=== PATIENT | female | born 1945 | race Asian ===

== ENCOUNTER 2017-09-21 19:35 | Inpatient (IN) | payer OTHER ==
[~2017-09-21] VITALS: Ht 157.5 cm; Wt 55.4 kg
[~2017-09-21 19:35] MED LIST: ADV250 IH; ALBU8HFA4 IH; AMLO-512 PO; ASPI-1182 PO; CIME400T PO; CLON.3 PO; FISH OIL; FLUT16H NASAL; GLIM4 PO; HYDR-2924 PO; INSNOV SQ; LOSA50TA37 PO; LOVA20 PO; VITAMIN
[2017-09-21 20:02] LABS: GLUCOSE,POINT OF CARE 213 MG/DL (70-110)
[2017-09-21 20:31] LABS: BASOPHILS % (AUTO) 0.4 % (0.0-2.0); HEMATOCRIT 44.2 % (36-46); LYMPHOCYTES # (AUTO) 2.5 K/uL (1.0-4.8); LYMPHOCYTES % (AUTO) 23.8 % (22.0-44.0); MEAN CORPUSCULAR HGB CONC 33.9 G/dL (31.0-37.0); MEAN CORPUSCULAR VOLUME 80 fL (80-100); MONOCYTES # (AUTO) 0.8 K/uL (0.1-1.0); MONOCYTES % (AUTO) 7.7 % (2.0-9.0); NEUTROPHILS # (AUTO) 6.9 K/uL (1.8-7.7); NEUTROPHILS % (AUTO) 67.1 % (40.0-70.0); PLATELET COUNT (AUTO) 406 K/uL (150-450); RED BLOOD CELL COUNT(AUTO) 5.55 MIL/uL (4.00-5.20); RED CELL DISTRIBUTION WIDTH 13.5 % (11.5-14.5); WHITE BLOOD COUNT (AUTO) 10.3 K/uL (4.5-11.0)
[2017-09-21 20:37] LABS: CALCIUM, TOTAL 10.4 mg/dL (8.8-10.5); CREATININE 0.92 mg/dL (0.60-1.30); POTASSIUM 3.3 mmol/L (3.5-5.1)
[2017-09-21 20:43] LABS: ALBUMIN 4.5 g/dL (3.4-5.0); BILIRUBIN,TOTAL 0.2 mg/dL (0.1-1.0); TOTAL PROTEIN, SERUM 9.4 g/dL (6.4-8.2)
[2017-09-21] MEDS ORDERED: ALBUTEROL SULFATE 5 MG/ML 20 ML NEB SOLN [BULK] NEB ONE (20:45)
[2017-09-21] MEDS ORDERED: MethylPREDNISolone SOD SUCC 125 MG/2 ML VIAL IVP ONE (20:45)
[2017-09-21] MEDS ORDERED: IPRATROPIUM BROMIDE 0.5 MG/2.5 ML NEB SOLUTION NEB ONE (20:45)
[2017-09-21] MEDS ORDERED: AmLODIPine BESYLATE 10 MG TABLET PO ONE (21:00)
[2017-09-21] MEDS ORDERED: HydrALAZINE HCL 20 MG/ML VIAL IVP ONE (21:00)
[2017-09-21] MEDS ORDERED: 0.9% SODIUM CHLORIDE 10 ML SYRINGE IVP PRN (21:15)
[2017-09-21] MEDS ORDERED: ASPIRIN 325 MG TABLET PO ONE (21:15)
[2017-09-21] MEDS ORDERED: ACETAMINOPHEN 325 MG TABLET PO PRN (21:15)
[2017-09-21] MEDS ORDERED: ONDANSETRON HCL 4 MG/2 ML VIAL IVP PRN (21:15)
[2017-09-21] MEDS ORDERED: ZOLPIDEM TARTRATE 5 MG TABLET PO PRN (21:45)
[2017-09-21] MEDS ORDERED: MAGNESIUM HYDROXIDE SUSPENSION 30 ML UDCUP PO PRN (21:45)
[2017-09-21] MEDS ORDERED: DEXTROSE 50%-WATER 25 GM/50 ML SYRINGE IVP PRN (21:45)
[2017-09-21] MEDS ORDERED: ALBUTEROL SULFATE 2.5 MG/0.5 ML NEB SOLUTION NEB PRN (21:45)
[2017-09-21] MEDS ORDERED: OxyCODONE HCL/ACETAMINOPHEN 5-325 MG TABLET PO PRN (21:45)
[2017-09-21] MEDS ORDERED: BISACODYL 10 MG RECTAL RECTAL SUPPOSITORY PR PRN (21:45)
[2017-09-21] MEDS ORDERED: MORPHINE SULFATE 2 MG/ML SYRINGE IVP PRN (21:45)
[2017-09-21] MEDS ORDERED: IPRATROPIUM BROMIDE 0.5 MG/2.5 ML NEB SOLUTION NEB PRN (21:45)
[2017-09-21] MEDS ORDERED: CloNIDine HCL 0.1 MG TABLET PO PRN (21:45)
[2017-09-21 21:51] VITALS: BP 149/70
[2017-09-21] MEDS: ACETAMINOPHEN 325 MG TABLET PO PRN (21:59)
[2017-09-21] MEDS: INSULIN ASPART 100 UNITS/ML SQ PRN (22:24)
[2017-09-21 23:25] VITALS: BP 134/62
[2017-09-22 04:32] VITALS: BP 147/74
[2017-09-22 04:51] LABS: APPEARANCE,URINE CLEAR (CLEAR); GLUCOSE, URINE (UA) 500 mg/dL (NEGATIVE); KETONES,URINE NEGATIVE (NEGATIVE); LEUKOCYTE ESTERASE ,URINE NEGATIVE (NEGATIVE); OCCULT BLOOD,URINE NEGATIVE (NEGATIVE); PROTEIN,URINE SEE CONFIRM (NEGATIVE)
[2017-09-22 04:57] LABS: ADD UA MICROSCOPIC YES
[2017-09-22 05:12] LABS: RBC,URINE None Seen /HPF (0-2); SULFOSALICYLIC ACID,URINE 1+ (Negative); WBC,URINE None Seen /HPF (0-5)
[2017-09-22] MEDS ORDERED: POTASSIUM CHL 10 MEQ/WATER 50 ML IV PRN (05:30)
[2017-09-22] MEDS ORDERED: BENZOCAINE/MENTHOL LOZENGE [8 LOZENGES/PACKET] PO PRN (05:30)
[2017-09-22] MEDS ORDERED: INFLUENZA VIRUS VACCINE QVS 2017-18 (3YR+)/PF 60 MCG/0.5 ML SYRINGE IM ONE (05:30)
[2017-09-22] MEDS ORDERED: POTASSIUM CHLORIDE 20 MEQ ER TABLET PO PRN (05:30)
[2017-09-22 06:12] LABS: GLUCOSE COMMENT 1 Received Meds; GLUCOSE,POINT OF CARE 282 MG/DL (70-110)
[2017-09-22] MEDS: GuaiFENesin/D-METHORPHAN [SUGAR-FREE] 200-20MG/10 ML SYRUP UDCUP PO PRN ×2 (06:16→21:35)
[2017-09-22] MEDS: INSULIN ASPART 100 UNITS/ML SQ PRN ×2 (06:21→12:03)
[2017-09-22 06:50] LABS: BASOPHILS # (AUTO) 0.02 K/uL (0.00-0.20); BASOPHILS % (AUTO) 0.2 % (0.0-2.0); EOSINOPHILS % (AUTO) 0.04 % (1.0-6.0); HEMATOCRIT 41.5 % (36-46); HEMOGLOBIN 13.8 g/dL (12.0-16.0); LYMPHOCYTES # (AUTO) 1.6 K/uL (1.0-4.8); LYMPHOCYTES % (AUTO) 16.6 % (22.0-44.0); MEAN CORPUSCULAR HEMOGLOBIN 26.3 pg (26.0-34.0); MEAN CORPUSCULAR HGB CONC 33.2 G/dL (31.0-37.0); MEAN CORPUSCULAR VOLUME 79 fL (80-100); MONOCYTES % (AUTO) 0.3 % (2.0-9.0); NEUTROPHILS # (AUTO) 7.7 K/uL (1.8-7.7); NEUTROPHILS % (AUTO) 82.9 % (40.0-70.0); PLATELET COUNT (AUTO) 334 K/uL (150-450); RED BLOOD CELL COUNT(AUTO) 5.24 MIL/uL (4.00-5.20); RED CELL DISTRIBUTION WIDTH 13.2 % (11.5-14.5); WHITE BLOOD COUNT (AUTO) 9.3 K/uL (4.5-11.0)
[2017-09-22 06:56] LABS: PROTHROMBIN TIME 10.7 SEC (9.4-11.6)
[2017-09-22 07:39] VITALS: BP 166/95
[2017-09-22 08:12] LABS: HEMOGLOBIN A1C 7.6 % (4.5-6.2)
[2017-09-22 08:16] LABS: CALCIUM, TOTAL 10.1 mg/dL (8.8-10.5); CREATININE 1.07 mg/dL (0.60-1.30); PHOSPHORUS 3.4 mg/dL (2.5-4.9); POTASSIUM 4.1 mmol/L (3.5-5.1)
[2017-09-22 08:17] LABS: BILIRUBIN,TOTAL 0.3 mg/dL (0.1-1.0); MAGNESIUM 2.1 mg/dL (1.80-2.40); TOTAL PROTEIN, SERUM 8.1 g/dL (6.4-8.2)
[2017-09-22] MEDS: ASPIRIN 81 MG EC TABLET PO SCH (08:34)
[2017-09-22] MEDS: AmLODIPine BESYLATE 10 MG TABLET PO SCH (08:34)
[2017-09-22] MEDS: HEPARIN SODIUM,PORCINE 5,000 UNITS/ML VIAL SQ SCH ×2 (08:34→21:31)
[2017-09-22] MEDS: FLUTICASONE PROPIONATE 50 MCG/SPRAY 16 GM NASAL SPRAY NASAL SCH (08:34)
[2017-09-22] MEDS: MULTIVITAMINS WITH MINERALS, THERAPEUTIC TABLET PO SCH (08:35)
[2017-09-22] MEDS: GLIMEPIRIDE 4 MG TABLET PO SCH ×2 (08:35→21:43)
[2017-09-22] MEDS: CIMETIDINE 400 MG TABLET PO SCH ×2 (08:35→21:30)
[2017-09-22] MEDS: FLUTICASONE/VILANTEROL 200-25 MCG/INH INHALER [14] IH SCH (08:35)
[2017-09-22] MEDS: OMEGA-3/DHA/EPA/FISH OIL 1,000 MG CAPSULE PO SCH (08:35)
[2017-09-22] MEDS: HydrALAZINE HCL 50 MG TABLET PO SCH ×2 (08:35→21:30)
[2017-09-22] MEDS ORDERED: ENOXAPARIN SODIUM 40 MG/0.4 ML PF SYRINGE SQ SCH (09:00)
[2017-09-22] MEDS: LOSARTAN POTASSIUM 50 MG TABLET PO SCH (09:47)
[2017-09-22] MEDS: LABETALOL HCL 200 MG TABLET PO SCH ×3 (09:47→21:30)
[2017-09-22 11:25] VITALS: BP 165/96
[2017-09-22 15:47] LABS: GLUCOSE,POINT OF CARE 208 MG/DL (70-110)
[2017-09-22 16:08] VITALS: BP 159/81
[2017-09-22 20:00] VITALS: BP 161/82
[2017-09-22 20:07] LABS: GLUCOSE,POINT OF CARE 113 MG/DL (70-110)
[2017-09-22] MEDS: LOVASTATIN 20 MG TABLET PO SCH (21:30)
[2017-09-22] MEDS: ONDANSETRON HCL 4 MG/2 ML VIAL IVP PRN (22:41)
[2017-09-23] VITALS (7 sets, daily range): BP systolic 134–159; BP diastolic 67–79
[2017-09-23] MEDS: ACETAMINOPHEN 325 MG TABLET PO PRN (06:15)
[2017-09-23] MEDS: INSULIN ASPART 100 UNITS/ML SQ PRN ×3 (06:16→18:15)
[2017-09-23 07:36] LABS: BASOPHILS # (AUTO) 0.03 K/uL (0.00-0.20); BASOPHILS % (AUTO) 0.2 % (0.0-2.0); EOSINOPHILS # (AUTO) 0.05 K/uL (0.00-0.70); EOSINOPHILS % (AUTO) 0.46 % (1.0-6.0); HEMATOCRIT 42.7 % (36-46); HEMOGLOBIN 14.1 g/dL (12.0-16.0); LYMPHOCYTES # (AUTO) 2.9 K/uL (1.0-4.8); LYMPHOCYTES % (AUTO) 25.4 % (22.0-44.0); MEAN CORPUSCULAR HEMOGLOBIN 26.4 pg (26.0-34.0); MEAN CORPUSCULAR VOLUME 80 fL (80-100); MONOCYTES # (AUTO) 0.9 K/uL (0.1-1.0); MONOCYTES % (AUTO) 7.5 % (2.0-9.0); NEUTROPHILS # (AUTO) 7.7 K/uL (1.8-7.7); NEUTROPHILS % (AUTO) 66.5 % (40.0-70.0); PLATELET COUNT (AUTO) 383 K/uL (150-450); RED BLOOD CELL COUNT(AUTO) 5.33 MIL/uL (4.00-5.20); WHITE BLOOD COUNT (AUTO) 11.5 K/uL (4.5-11.0)
[2017-09-23 08:24] LABS: ALBUMIN 4.1 g/dL (3.4-5.0); BILIRUBIN,TOTAL 0.4 mg/dL (0.1-1.0); CALCIUM, TOTAL 10.1 mg/dL (8.8-10.5); CREATININE 1.07 mg/dL (0.60-1.30); MAGNESIUM 2.3 mg/dL (1.80-2.40); POTASSIUM 4.6 mmol/L (3.5-5.1); TOTAL PROTEIN, SERUM 8.1 g/dL (6.4-8.2)
[2017-09-23] MEDS: ONDANSETRON HCL 4 MG/2 ML VIAL IVP PRN (08:27)
[2017-09-23] MEDS: GLIMEPIRIDE 4 MG TABLET PO SCH ×2 (09:00→18:13)
[2017-09-23] MEDS: AmLODIPine BESYLATE 10 MG TABLET PO SCH (09:01)
[2017-09-23] MEDS: LOSARTAN POTASSIUM 50 MG TABLET PO SCH (09:01)
[2017-09-23] MEDS: HydrALAZINE HCL 50 MG TABLET PO SCH ×2 (09:02→20:27)
[2017-09-23] MEDS: FLUTICASONE PROPIONATE 50 MCG/SPRAY 16 GM NASAL SPRAY NASAL SCH (09:02)
[2017-09-23] MEDS: FLUTICASONE/VILANTEROL 200-25 MCG/INH INHALER [14] IH SCH (09:02)
[2017-09-23] MEDS: LABETALOL HCL 200 MG TABLET PO SCH ×3 (09:02→20:27)
[2017-09-23] MEDS ORDERED: SESTAMIBI TC99M/UD ISOTOPE 1 EA INJ INJ ONE (09:05)
[2017-09-23] MEDS: OMEGA-3/DHA/EPA/FISH OIL 1,000 MG CAPSULE PO SCH (09:08)
[2017-09-23] MEDS: MULTIVITAMINS WITH MINERALS, THERAPEUTIC TABLET PO SCH (09:08)
[2017-09-23] MEDS: CIMETIDINE 400 MG TABLET PO SCH ×2 (09:08→20:27)
[2017-09-23] MEDS: HEPARIN SODIUM,PORCINE 5,000 UNITS/ML VIAL SQ SCH ×2 (09:09→20:28)
[2017-09-23] MEDS: ASPIRIN 81 MG EC TABLET PO SCH (09:09)
[2017-09-23] MEDS: LOVASTATIN 20 MG TABLET PO SCH (20:27)
[2017-09-24] VITALS (9 sets, daily range): BP systolic 117–158; BP diastolic 53–85
[2017-09-24 07:01] LABS: ALBUMIN/GLOBULIN RAITO (PEP) 1.4 (0.7-1.7); ALPHA-1 GLOBULINS(PEP) 0.2 g/dL (0.0-0.4); ALPHA-2 GLOBULINS (PEP) 0.8 g/dL (0.4-1.0); BETA (PEP) 1.1 g/dL (0.7-1.3); GAMMA GLOBULINS (PEP) 1.3 g/dL (0.4-1.8); GLOBULIN TOTAL (PEP) 3.4 g/dL (2.2-3.9); M-SPIKE (PEP) Not Observed g/dL (Not Observed)
[2017-09-24 07:19] LABS: BASOPHILS # (AUTO) 0.02 K/uL (0.00-0.20); BASOPHILS % (AUTO) 0.2 % (0.0-2.0); EOSINOPHILS # (AUTO) 0.05 K/uL (0.00-0.70); EOSINOPHILS % (AUTO) 0.61 % (1.0-6.0); HEMATOCRIT 41.2 % (36-46); HEMOGLOBIN 13.5 g/dL (12.0-16.0); LYMPHOCYTES # (AUTO) 2.6 K/uL (1.0-4.8); MEAN CORPUSCULAR HEMOGLOBIN 26.6 pg (26.0-34.0); MEAN CORPUSCULAR HGB CONC 32.8 G/dL (31.0-37.0); MEAN CORPUSCULAR VOLUME 81 fL (80-100); MONOCYTES # (AUTO) 0.7 K/uL (0.1-1.0); MONOCYTES % (AUTO) 8.4 % (2.0-9.0); NEUTROPHILS # (AUTO) 4.6 K/uL (1.8-7.7); NEUTROPHILS % (AUTO) 57.7 % (40.0-70.0); PLATELET COUNT (AUTO) 341 K/uL (150-450); RED BLOOD CELL COUNT(AUTO) 5.08 MIL/uL (4.00-5.20); RED CELL DISTRIBUTION WIDTH 13.3 % (11.5-14.5)
[2017-09-24 07:49] LABS: BILIRUBIN,TOTAL 0.3 mg/dL (0.1-1.0); CALCIUM, TOTAL 9.7 mg/dL (8.8-10.5); CREATININE 0.93 mg/dL (0.60-1.30); MAGNESIUM 2.2 mg/dL (1.80-2.40); POTASSIUM 3.7 mmol/L (3.5-5.1); TOTAL PROTEIN, SERUM 7.1 g/dL (6.4-8.2)
[2017-09-24] MEDS ORDERED: REGADENOSON 0.4 MG/5 ML PF SYRINGE IVP ONE (08:06)
[2017-09-24] MEDS ORDERED: AMINOPHYLLINE 25 MG/ML 10 ML VIAL IVP ONE (08:10)
[2017-09-24] MEDS ORDERED: SESTAMIBI TC99M/UD ISOTOPE 1 EA INJ INJ ONE (08:15)
[2017-09-24] MEDS: LOSARTAN POTASSIUM 50 MG TABLET PO SCH (09:36)
[2017-09-24] MEDS: HEPARIN SODIUM,PORCINE 5,000 UNITS/ML VIAL SQ SCH ×2 (09:36→20:32)
[2017-09-24] MEDS: MULTIVITAMINS WITH MINERALS, THERAPEUTIC TABLET PO SCH (09:37)
[2017-09-24] MEDS: GLIMEPIRIDE 4 MG TABLET PO SCH (09:37)
[2017-09-24] MEDS: FLUTICASONE PROPIONATE 50 MCG/SPRAY 16 GM NASAL SPRAY NASAL SCH (09:37)
[2017-09-24] MEDS: CIMETIDINE 400 MG TABLET PO SCH ×2 (09:37→20:31)
[2017-09-24] MEDS: AmLODIPine BESYLATE 10 MG TABLET PO SCH (09:37)
[2017-09-24] MEDS: HydrALAZINE HCL 50 MG TABLET PO SCH ×2 (09:37→20:31)
[2017-09-24] MEDS: LABETALOL HCL 200 MG TABLET PO SCH ×3 (09:37→20:31)
[2017-09-24] MEDS: ASPIRIN 81 MG EC TABLET PO SCH (09:37)
[2017-09-24] MEDS: FLUTICASONE/VILANTEROL 200-25 MCG/INH INHALER [14] IH SCH (09:38)
[2017-09-24 11:43] LABS: GLUCOSE,POINT OF CARE 205 MG/DL (70-110)
[2017-09-24] MEDS: OMEGA-3/DHA/EPA/FISH OIL 1,000 MG CAPSULE PO SCH (12:32)
[2017-09-24] MEDS: INSULIN ASPART 100 UNITS/ML SQ PRN ×3 (14:45→21:54)
[2017-09-24] MEDS ORDERED: PNEUMOCOCCAL VACCINE POLYVALENT 0.5 ML VIAL [PPSV23] IM ONE (15:15)
[2017-09-24] MEDS: LOVASTATIN 20 MG TABLET PO SCH (20:31)
[2017-09-24 23:22] LABS: GLUCOSE COMMENT 1 Received Meds; GLUCOSE,POINT OF CARE 161 MG/DL (70-110)
[2017-09-24 23:22] LABS: GLUCOSE,POINT OF CARE 130 MG/DL (70-110)
[2017-09-24 23:32] LABS: GLUCOSE COMMENT 1 Received Meds; GLUCOSE,POINT OF CARE 209 MG/DL (70-110)
[2017-09-25 05:07] VITALS: BP 156/77
[2017-09-25 05:33] LABS: GLUCOSE COMMENT 1 Received Meds; GLUCOSE,POINT OF CARE 143 MG/DL (70-110)
[2017-09-25 05:37] LABS: GLUCOSE,POINT OF CARE 161 MG/DL (70-110)
[2017-09-25 05:37] LABS: GLUCOSE,POINT OF CARE 207 MG/DL (70-110)
[2017-09-25 05:37] LABS: GLUCOSE,POINT OF CARE 137 MG/DL (70-110)
[2017-09-25 05:37] LABS: GLUCOSE,POINT OF CARE 79 MG/DL (70-110)
[2017-09-25 06:44] LABS: BASOPHILS % (AUTO) 0.3 % (0.0-2.0); EOSINOPHILS % (AUTO) 1.2 % (1.0-6.0); HEMATOCRIT 39.4 % (36-46); HEMOGLOBIN 13.2 g/dL (12.0-16.0); LYMPHOCYTES # (AUTO) 2.6 K/uL (1.0-4.8); LYMPHOCYTES % (AUTO) 35.4 % (22.0-44.0); MEAN CORPUSCULAR HGB CONC 33.4 G/dL (31.0-37.0); MEAN CORPUSCULAR VOLUME 81 fL (80-100); MONOCYTES # (AUTO) 0.8 K/uL (0.1-1.0); MONOCYTES % (AUTO) 10.9 % (2.0-9.0); NEUTROPHILS # (AUTO) 3.8 K/uL (1.8-7.7); NEUTROPHILS % (AUTO) 52.2 % (40.0-70.0); PLATELET COUNT (AUTO) 328 K/uL (150-450); RED BLOOD CELL COUNT(AUTO) 4.87 MIL/uL (4.00-5.20); RED CELL DISTRIBUTION WIDTH 13.5 % (11.5-14.5); WHITE BLOOD COUNT (AUTO) 7.3 K/uL (4.5-11.0)
[2017-09-25 07:00] VITALS: BP 146/76
[2017-09-25 07:08] LABS: ALBUMIN 3.6 g/dL (3.4-5.0); BILIRUBIN,TOTAL 0.3 mg/dL (0.1-1.0); CALCIUM, TOTAL 9.4 mg/dL (8.8-10.5); CREATININE 1.06 mg/dL (0.60-1.30); MAGNESIUM 2.4 mg/dL (1.80-2.40); POTASSIUM 3.6 mmol/L (3.5-5.1); TOTAL PROTEIN, SERUM 7.3 g/dL (6.4-8.2)
[2017-09-25] MEDS: LABETALOL HCL 200 MG TABLET PO SCH (08:17)
[2017-09-25] MEDS: CIMETIDINE 400 MG TABLET PO SCH (08:17)
[2017-09-25] MEDS: MULTIVITAMINS WITH MINERALS, THERAPEUTIC TABLET PO SCH (08:17)
[2017-09-25] MEDS: OMEGA-3/DHA/EPA/FISH OIL 1,000 MG CAPSULE PO SCH (08:17)
[2017-09-25] MEDS: HEPARIN SODIUM,PORCINE 5,000 UNITS/ML VIAL SQ SCH (08:17)
[2017-09-25] MEDS: LOSARTAN POTASSIUM 50 MG TABLET PO SCH (08:17)
[2017-09-25] MEDS: AmLODIPine BESYLATE 10 MG TABLET PO SCH (08:17)
[2017-09-25] MEDS: HydrALAZINE HCL 50 MG TABLET PO SCH (08:18)
[2017-09-25] MEDS: FLUTICASONE PROPIONATE 50 MCG/SPRAY 16 GM NASAL SPRAY NASAL SCH (08:18)
[2017-09-25] MEDS: ASPIRIN 81 MG EC TABLET PO SCH (08:18)
[2017-09-25] MEDS: FLUTICASONE/VILANTEROL 200-25 MCG/INH INHALER [14] IH SCH (08:18)
[2017-09-25] MEDS ORDERED: LABE200T PO (09:06)
[2017-09-25] MEDS ORDERED: ATORVASTATIN CALCIUM 20 MG TABLET PO SCH (10:00)
[2017-09-25 11:14] VITALS: BP 128/64
[2017-09-25] MEDS: INSULIN ASPART 100 UNITS/ML SQ PRN (12:03)
[2017-09-25 12:12] LABS: GLUCOSE,POINT OF CARE 185 MG/DL (70-110)
[2017-09-25 18:37] LABS: GLUCOSE,POINT OF CARE 133 MG/DL (70-110)
== END 2017-09-25 13:15 | disposition home or self-care (01) | DRG 191 ==
LOC: EMS 19:37 → 5S 21:20
PROVIDERS: ADMIT Internal Medicine; ATTEND Internal Medicine
PROC: 3E0234Z Introduction of Serum, Toxoid and Vaccine into Muscle, Percutaneous Approach (ICD-10-PCS; 2017-09-22)
PROC: 3E0234Z Introduction of Serum, Toxoid and Vaccine into Muscle, Percutaneous Approach (ICD-10-PCS; principal; 2017-09-24)
DX: J44.1 Chronic obstructive pulmonary disease with (acute) exacerbation (principal); I16.1 Hypertensive emergency; E11.65 Type 2 diabetes mellitus with hyperglycemia; I34.0 Nonrheumatic mitral (valve) insufficiency; E87.1 Hypo-osmolality and hyponatremia; I20.0 Unstable angina; E78.5 Hyperlipidemia, unspecified; E87.6 Hypokalemia; M19.90 Unspecified osteoarthritis, unspecified site; Z72.0 Tobacco use; I10 Essential (primary) hypertension; K21.9 Gastro-esophageal reflux disease without esophagitis; Z79.4 Long term (current) use of insulin; Z91.14 Patient's other noncompliance with medication regimen; Z23 Encounter for immunization
CPT/HCPCS: 76775; 78452; 82962; 83036; 83735; 84100; 84132; 84155; 84165; 90471; 93005; 93017; 93306; 93976; 94640; 96374; 96375; 99291; A9500; J0360; J1644; J2405; J2930

== ENCOUNTER 2017-11-06 00:43 | Emergency (ER) | payer OTHER ==
[~2017-11-06] VITALS: Ht 157.5 cm; Wt 63.6 kg
[~2017-11-06 00:43] MED LIST changes: -CLON.3 PO; -FLUT16H NASAL; -INSNOV SQ; +LABE200T PO
[2017-11-06] MEDS ORDERED: OMEG-50 PO (00:56)
[2017-11-06] MEDS ORDERED: GABA-529 PO (00:56)
[2017-11-06] MEDS ORDERED: HYDR-2924 PO (00:56)
[2017-11-06] MEDS ORDERED: MULT-1103 PO (00:56)
[2017-11-06] MEDS ORDERED: LOVA20 PO (00:56)
[2017-11-06] MEDS ORDERED: CYAN1TAB44 PO (00:56)
[2017-11-06] MEDS ORDERED: DiphenhydrAMINE HCL 50 MG/ML VIAL IM ONE (01:45)
[2017-11-06] MEDS ORDERED: KETOROLAC TROMETHAMINE 30 MG/ML VIAL IM ONE (01:45)
[2017-11-06] MEDS ORDERED: METOCLOPRAMIDE HCL 5 MG/ML 2 ML VIAL IM ONE (01:45)
[2017-11-06] MEDS ORDERED: FentaNYL CITRATE-PF 100 MCG/2 ML VIAL IM ONE (03:15)
[2017-11-06 03:38] VITALS: BP 125/70
== END 2017-11-06 04:42 | disposition home or self-care (01) ==
LOC: EMS 00:44
DX: R51 Headache (principal); J45.909 Unspecified asthma, uncomplicated; E11.9 Type 2 diabetes mellitus without complications; I10 Essential (primary) hypertension
CPT/HCPCS: 70450; 96372; 99284; J1200; J1885; J2765; J3010

== ENCOUNTER 2018-12-19 17:27 | Inpatient (IN) | payer MEDICAID, MEDICARE, OTHER ==
[~2018-12-19] VITALS: Ht 152.4 cm; Wt 54.5 kg
[~2018-12-19 17:27] MED LIST changes: +CYAN1TAB44 PO; -FISH OIL; +GABA-529 PO; -LABE200T PO; +LABE200T5 PO; -LOSA50TA37 PO; +LOSA50TA64 PO; +MULT-1103 PO; +OMEG-50 PO; -VITAMIN
[2018-12-19 17:38] LABS: GLUCOSE,POINT OF CARE 117 MG/DL (70-110)
[2018-12-19] MEDS ORDERED: METF-960 PO (17:39)
[2018-12-19 19:09] LABS: APPEARANCE,URINE CLEAR (CLEAR); BILIRUBIN,URINE NEGATIVE (NEGATIVE); GLUCOSE, URINE (UA) NEGATIVE (NEGATIVE); KETONES,URINE NEGATIVE (NEGATIVE); LEUKOCYTE ESTERASE ,URINE NEGATIVE (NEGATIVE); NITRATE,URINE NEGATIVE (NEGATIVE); OCCULT BLOOD,URINE NEGATIVE (NEGATIVE); PH,URINE 6.5 (5.0-8.0); PROTEIN,URINE NEGATIVE (NEGATIVE); UROBILINOGEN,URINE 0.2 mg/dL (<=1.0)
[2018-12-19 19:09] LABS: BASOPHILS % (AUTO) 0.5 % (0.0-2.0); EOSINOPHILS % (AUTO) 2.5 % (1.0-6.0); HEMATOCRIT 39.4 % (36-46); HEMOGLOBIN 13.2 g/dL (12.0-16.0); LYMPHOCYTES # (AUTO) 2.5 K/uL (1.0-4.8); LYMPHOCYTES % (AUTO) 33.6 % (22.0-44.0); MEAN CORPUSCULAR HEMOGLOBIN 26.8 pg (26.0-34.0); MEAN CORPUSCULAR HGB CONC 33.4 G/dL (31.0-37.0); MEAN CORPUSCULAR VOLUME 80 fL (80-100); MONOCYTES # (AUTO) 0.6 K/uL (0.1-1.0); MONOCYTES % (AUTO) 8.3 % (2.0-9.0); NEUTROPHILS # (AUTO) 4.2 K/uL (1.8-7.7); NEUTROPHILS % (AUTO) 55.1 % (40.0-70.0); PLATELET COUNT (AUTO) 334 K/uL (150-450); RED BLOOD CELL COUNT(AUTO) 4.91 MIL/uL (4.00-5.20); RED CELL DISTRIBUTION WIDTH 13.9 % (11.5-14.5)
[2018-12-19 19:21] LABS: ANION GAP 12 mmol/L (8-16); CALCIUM, TOTAL 10.4 mg/dL (8.8-10.5); CARBON DIOXIDE 28 mmol/L (22-29); CHLORIDE 102 mmol/L (98-107); CREATININE 0.73 mg/dL (0.60-1.30); GLUCOSE,RANDOM 57 mg/dL (70-110); POTASSIUM 3.6 mmol/L (3.5-5.1); SODIUM SERUM 142 mmol/L (136-145); UREA NITROGEN, BLOOD 15 mg/dL (7-18)
[2018-12-19 19:28] LABS: GLOMERULAR FILTR. RATE CALC > 60 mL/min (>60)
[2018-12-19 19:41] LABS: B-TYPE NATRIURETIC PEPTIDE 30 pg/mL (0-100)
[2018-12-19 19:45] LABS: ALANINE AMINOTRANSFERASE 35 U/L (12-78); ALBUMIN 4.2 g/dL (3.4-5.0); ALKALINE PHOSPHATASE 92 U/L (46-116); ASPARTATE AMINOTRANSFERASE 23 U/L (15-37); BILIRUBIN,TOTAL 0.2 mg/dL (0.1-1.0); CREATINE KINASE, TOTAL ONLY 83 U/L (26-192); TOTAL PROTEIN, SERUM 7.9 g/dL (6.4-8.2)
[2018-12-19 19:48] LABS: GLUCOSE,POINT OF CARE 40 MG/DL (70-110)
[2018-12-19] MEDS ORDERED: DEXTROSE 50%-WATER 25 GM/50 ML SYRINGE IVP ONE (20:00)
[2018-12-19 20:23] LABS: GLUCOSE,POINT OF CARE 262 MG/DL (70-110)
[2018-12-19] MEDS ORDERED: 0.9% SODIUM CHLORIDE 10 ML SYRINGE IVP PRN ×2 (20:30→23:00)
[2018-12-19] MEDS ORDERED: DEXTROSE 5%-0.9% SODIUM CHL 1,000 ML IV ONE (20:30)
[2018-12-19] MEDS ORDERED: ACETAMINOPHEN 325 MG TABLET PO PRN ×2 (20:30→23:00)
[2018-12-19 22:03] VITALS: BP 142/76
[2018-12-19] MEDS: DOCUSATE SODIUM 100 MG CAPSULE PO SCH (23:00)
[2018-12-19] MEDS ORDERED: OxyCODONE HCL/ACETAMINOPHEN 5-325 MG TABLET PO PRN ×2 (23:00)
[2018-12-19] MEDS ORDERED: INSULIN LISPRO 100 UNITS/ML SQ PRN (23:00)
[2018-12-19] MEDS ORDERED: ONDANSETRON HCL 4 MG/2 ML VIAL IVP PRN (23:00)
[2018-12-19] MEDS ORDERED: MAGNESIUM HYDROXIDE SUSPENSION 30 ML UDCUP PO PRN (23:00)
[2018-12-19] MEDS ORDERED: ALBUTEROL SULFATE HFA 90 MCG/PUFF 8 GM INHALER IH PRN (23:00)
[2018-12-19] MEDS: LABETALOL HCL 200 MG TABLET PO SCH (23:32)
[2018-12-20] VITALS (7 sets, daily range): BP systolic 136–157; BP diastolic 64–78
[2018-12-20] MEDS: DEXTROSE 50%-WATER 25 GM/50 ML SYRINGE IVP PRN ×2 (05:47→05:51)
[2018-12-20 07:05] LABS: BASOPHILS % (AUTO) 0.6 % (0.0-2.0); EOSINOPHILS % (AUTO) 3.2 % (1.0-6.0); HEMATOCRIT 36.9 % (36-46); HEMOGLOBIN 12.5 g/dL (12.0-16.0); LYMPHOCYTES # (AUTO) 1.7 K/uL (1.0-4.8); LYMPHOCYTES % (AUTO) 31.5 % (22.0-44.0); MEAN CORPUSCULAR HEMOGLOBIN 27.5 pg (26.0-34.0); MEAN CORPUSCULAR HGB CONC 33.8 G/dL (31.0-37.0); MEAN CORPUSCULAR VOLUME 81 fL (80-100); MONOCYTES # (AUTO) 0.5 K/uL (0.1-1.0); NEUTROPHILS # (AUTO) 2.9 K/uL (1.8-7.7); NEUTROPHILS % (AUTO) 54.7 % (40.0-70.0); PLATELET COUNT (AUTO) 290 K/uL (150-450); RED BLOOD CELL COUNT(AUTO) 4.54 MIL/uL (4.00-5.20); RED CELL DISTRIBUTION WIDTH 14.3 % (11.5-14.5)
[2018-12-20 07:17] LABS: ALBUMIN 3.6 g/dL (3.4-5.0); BILIRUBIN,TOTAL 0.5 mg/dL (0.1-1.0); CALCIUM, TOTAL 8.8 mg/dL (8.8-10.5); CREATININE 0.93 mg/dL (0.60-1.30); POTASSIUM 3.7 mmol/L (3.5-5.1)
[2018-12-20 07:23] LABS: GLUCOMETER DEV NAME(LOC) 5S.1; GLUCOSE,POINT OF CARE 65 MG/DL (70-110)
[2018-12-20] MEDS: PANTOPRAZOLE SODIUM 40 MG/VIAL IVP SCH (08:18)
[2018-12-20] MEDS: HydrALAZINE HCL 50 MG TABLET PO SCH ×3 (08:18→21:24)
[2018-12-20] MEDS: DOCUSATE SODIUM 100 MG CAPSULE PO SCH ×2 (08:18→21:24)
[2018-12-20] MEDS: ASPIRIN 81 MG EC TABLET PO SCH (08:19)
[2018-12-20] MEDS: LOVASTATIN 20 MG TABLET PO SCH (08:19)
[2018-12-20] MEDS: LOSARTAN POTASSIUM 50 MG TABLET PO SCH (08:19)
[2018-12-20] MEDS: GABAPENTIN 100 MG CAPSULE PO SCH (08:20)
[2018-12-20] MEDS: LABETALOL HCL 200 MG TABLET PO SCH ×2 (09:41→21:25)
[2018-12-20] MEDS: AmLODIPine BESYLATE 10 MG TABLET PO SCH (09:42)
[2018-12-21 00:14] LABS: GLUCOMETER DEV NAME(LOC) 5S.1; GLUCOSE,POINT OF CARE 185 MG/DL (70-110)
[2018-12-21 00:14] LABS: GLUCOMETER DEV NAME(LOC) 5S.1; GLUCOSE,POINT OF CARE 160 MG/DL (70-110)
[2018-12-21 05:05] VITALS: BP 135/66
[2018-12-21 08:19] LABS: GLUCOMETER DEV NAME(LOC) 5S.1; GLUCOSE,POINT OF CARE 157 MG/DL (70-110)
[2018-12-21 08:19] LABS: GLUCOMETER DEV NAME(LOC) 5N.1; GLUCOSE,POINT OF CARE 122 MG/DL (70-110)
[2018-12-21 08:21] VITALS: BP 147/56
[2018-12-21] MEDS: ASPIRIN 81 MG EC TABLET PO SCH (08:39)
[2018-12-21] MEDS: AmLODIPine BESYLATE 10 MG TABLET PO SCH (08:39)
[2018-12-21] MEDS: LOSARTAN POTASSIUM 50 MG TABLET PO SCH (08:39)
[2018-12-21] MEDS: LOVASTATIN 20 MG TABLET PO SCH (08:39)
[2018-12-21] MEDS: GABAPENTIN 100 MG CAPSULE PO SCH (08:40)
[2018-12-21] MEDS: PANTOPRAZOLE SODIUM 40 MG/VIAL IVP SCH (08:44)
[2018-12-21] MEDS: LABETALOL HCL 200 MG TABLET PO SCH (09:00)
[2018-12-21] MEDS: DOCUSATE SODIUM 100 MG CAPSULE PO SCH (10:37)
[2018-12-21] MEDS: HydrALAZINE HCL 50 MG TABLET PO SCH (10:38)
[2018-12-21 12:14] LABS: GLUCOMETER DEV NAME(LOC) 5S.1; GLUCOSE,POINT OF CARE 251 MG/DL (70-110)
[2018-12-21 12:40] VITALS: BP 153/79
== END 2018-12-21 12:50 | disposition home or self-care (01) | DRG 637 ==
LOC: EMS 17:29 → 5S 20:28
PROVIDERS: ADMIT Internal Medicine; ATTEND Internal Medicine
DX: E11.649 Type 2 diabetes mellitus with hypoglycemia without coma (principal); G93.41 Metabolic encephalopathy; J44.9 Chronic obstructive pulmonary disease, unspecified; E11.42 Type 2 diabetes mellitus with diabetic polyneuropathy; E11.65 Type 2 diabetes mellitus with hyperglycemia; E78.00 Pure hypercholesterolemia, unspecified; E78.5 Hyperlipidemia, unspecified; I11.9 Hypertensive heart disease without heart failure; M19.90 Unspecified osteoarthritis, unspecified site; Z79.899 Other long term (current) drug therapy; Z79.82 Long term (current) use of aspirin; Z79.4 Long term (current) use of insulin
CPT/HCPCS: 83036; 93005; 96365; 96366; 96376; C9113; G0378; J7042